=== PATIENT | female | born 2000 | race Caucasian/White ===

== ENCOUNTER → 2023-05-27 11:12 | Outpatient (BNVA) | payer OTHER, SELFPAY | PROVIDERS: PCP Registered Nurse; Visit Provider Internal Medicine Cardiovascular Disease | DX: R07.9 Chest pain, unspecified (principal) | CPT/HCPCS: 93005 ==

== ENCOUNTER 2023-06-10 11:48 | Outpatient (CLI) | payer OTHER, SELFPAY ==
[2023-06-10 11:56] VITALS: BMI 49.6
--- NOTE | 2023-06-10 11:57 | ECG_ITS ---
[facility] Test Date: 2023-06-10 Pat Name: Violeta Diego Department: Room: Gender: Female Director Furniture: Ward Colbert : 2000 Requested By: Rachell Ramírez Order Number: [id number] Freedom MD: Rachell Ramírez M.D. Interpretive Statements NAME OF STUDY: TREADMILL STRESS TEST INDICATION: Chest Pain, family history of CAD Baseline blood pressure of 153/87 mm Hg, heart rate of 120 beats per minute and oxygen saturation of 98%. EKG showed sinus tachycardia. Rightward axis. ST depression and T wave inversion in lead III, aVF V3. Biphasic T wave in V4 to V6. ??? The patient exercised for 7 minutes and 44 seconds on a modified Pradip protocol. Patient attained a maximum heart rate of 171 beats per minute(87% of the maximum predicted heart rate) with a blood pressure at the peak exercise of 167/88 mm Hg and oxygen saturation of 93%. The EKG at the peak exercise revealed sinus tachycardia with no significant ST-T wave changes. Patient did not have any chest pain or any significant arrhythmis with the exercise.??? During the recovery phase, there were no new changes. ??? Blood pressure at the end of the recovery phase was 105/56 mm Hg with a heart rate of 118 beats per minute and oxygen saturation of 97%. ??? CONCLUSION: 1. Normal EKG response to treadmill exercise. 2. No exercise-induced chest pain or cardiac arrhythmia. 3. Fair exercise tolerance for age,attained a maximum of 7.5 METs. 4. Baseline hypertension with normal response to exercise. Electronically Signed On 06-10-2023 17:39:47 CDT by Rachell Ramírez M.D. [id number]
[2023-06-10 12:32] VITALS: BP 105/65; PULSE 118
== END 2023-06-10 11:49 | disposition home or self-care (01) ==
LOC: CDL 11:50
PROVIDERS: PCP Registered Nurse; Visit Provider Internal Medicine Cardiovascular Disease
DX: R07.9 Chest pain, unspecified (principal); Z82.49 Family history of ischemic heart disease and other diseases of the circulatory system
CPT/HCPCS: 93017

== ENCOUNTER 2023-07-16 10:00 | Outpatient (CLI) | payer OTHER, SELFPAY | END 2023-07-16 10:01 | disposition home or self-care (01) | LOC: SLEEP 07-21 09:36 | PROVIDERS: PCP Registered Nurse; Visit Provider Internal Medicine Cardiovascular Disease | DX: G47.19 Other hypersomnia (principal) | CPT/HCPCS: 94762 ==